=== PATIENT | male | born 1970 | race Caucasian/White ===

== ENCOUNTER 2017-01-08 20:33 | Emergency (ER) | payer OTHER ==
[2017-01-08] MEDS ORDERED: NS 1,000 ML IV ONE (20:45)
--- NOTE | 2017-01-08 20:52 | EDPHY ---
HPI/HX/ROS/PE/MDM Narrative: CHIEF COMPLAINT: Syncope HPI: The patient is a 46-year-old male with a history of hypertension. He drove here with his from [place] today. He was at a local bar and had several drinks as well as a fairly large amount of edible marijuana. Approximately 45 minutes after ingestion, he began to feel very strange and had a witnessed syncopal episode. This was accompanied by some diaphoresis but no chest pain. The patient currently feels "a little strange" but denies pain, numbness or tingling. He has no history of similar episodes in the past. REVIEW OF SYSTEMS: Aside from elements discussed in the HPI, a comprehensive 10-point review of systems was reviewed and is negative. PMH: Hypertension. SOCIAL HISTORY: , lives in [place]. Some alcohol use. PHYSICAL EXAM: General:Patient is alert, in no acute distress. ENT:Eyes are normal to inspection. ENT inspection normal. Neck: Normal inspection. Full range of motion. Respiratory:No respiratory distress. Breath sounds normal bilaterally. Cardiovascular: Regular rate and rhythm. Strong peripheral pulses. Normal cap refill. Abdomen:The abdomen is nontender to palpation. There are no peritoneal signs. There are normal bowel sounds. Back: Normal to inspection. No tenderness to palpation. Skin: Normal color. No rash. Warm and dry. Extremities: Normal appearance. Full range of motion. Neuro: Oriented x3. Normal motor function. Normal sensory function. ED Course: EKG was ordered and interpreted by myself. Please see [employer] system for official reading. Patient was treated with IV normal saline. On re-evaluation at 10:40 p.m., the patient states he feels much, much better and would like to be discharged home. His blood pressure still remained in the 90 systolic and I explained to him that I would like this to be higher, but the patient does not want to remain in the emergency department. I discussed strict return precautions with he and his . They are in agreement with plan. I think the cause of the patient's syncope is likely multifactorial including dehydration, adjustment out to, alcohol and marijuana use. I see no evidence of acute coronary syndrome, life-threatening arrhythmia or stroke. - Data Points Laboratory Results: Laboratory Results 01/08/17 21:00 01/08/17 21:00 01/08/17 01/08/17 21:00 21:00 WBC 10.25 10^3/uL H 10^3/uL (3.80-9.50) RBC 4.81 10^6/uL 10^6/uL (4.40-6.38) Hgb 14.9 g/dL g/dL (13.7-17.5) Hct 43.5 % % (40.0-51.0) MCV 90.4 fL fL (81.5-99.8) MCH 31.0 pg pg (27.9-34.1) MCHC 34.3 g/dL g/dL (32.4-36.7) RDW 13.0 % % (11.5-15.2) Plt Count 264 10^3/uL 10^3/uL (150-400) MPV 11.0 fL fL (8.7-11.7) Neut % (Auto) 30.9 % L % (39.3-74.2) Lymph % (Auto) 56.3 % H % (15.0-45.0) [place] % (Auto) 9.9 % % (4.5-13.0) Eos % (Auto) 2.1 % % (0.6-7.6) Baso % (Auto) 0.5 % % (0.3-1.7) Nucleat RBC Rel Count 0.0 % % (0.0-0.2) Absolute Neuts (auto) 3.17 10^3/uL 10^3/uL (1.70-6.50) Absolute Lymphs (auto) 5.77 10^3/uL H 10^3/uL (1.00-3.00) Absolute Monos (auto) 1.01 10^3/uL H 10^3/uL (0.30-0.80) Absolute Eos (auto) 0.22 10^3/uL 10^3/uL (0.03-0.40) Absolute Basos (auto) 0.05 10^3/uL 10^3/uL (0.02-0.10) Absolute Nucleated RBC 0.00 10^3/uL 10^3/uL (0-0.01) Immature Gran % 0.3 % % (0.0-1.1) Immature Gran # 0.03 10^3/uL 10^3/uL (0.00-0.10) Sodium 142 mEq/L mEq/L (134-144) Potassium 3.8 mEq/L mEq/L (3.5-5.2) Chloride 103 mEq/L mEq/L (97-110) Carbon Dioxide 21 mEq/l L mEq/l (22-31) Anion Gap 18 mEq/L H mEq/L (8-16) BUN 14 mg/dL mg/dL (7-23) Creatinine 1.2 mg/dL mg/dL (0.7-1.3) Estimated GFR > 60 Glucose 121 mg/dL H mg/dL (70-100) Calcium 9.7 mg/dL mg/dL (8.5-10.4) Troponin I < 0.012 ng/mL ng/mL (0.000-0.034) Medications Given: Discontinued Medications Sodium Chloride (Ns) 1,000 mls @ 0 mls/hr IV EDNOW ONE; Wide Open PRN Reason: Protocol Stop: 01/08/17 20:46 Last Admin: 01/08/17 20:49 Dose: 1,000 mls General Initial Vital Signs: Initial Vital Signs Temperature (C) 36.8 C 01/08/17 20:44 Heart Rate 95 01/08/17 20:44 Respiratory Rate 16 01/08/17 20:44 Blood Pressure 84/62 L 01/08/17 20:44 O2 Sat (%) 97 01/08/17 20:44 O2 Delivery Mode Room Air Allergies/Adverse Reactions: No Known Allergies Allergy (Unverified 01/08/17 20:43) Home Medications: Medication Instructions Recorded Citalopram 01/08/17 Lisinopril 01/08/17 SIMVASTATIN 01/08/17 Departure - Departure Disposition: Home, Routine, Self-Care Clinical Impression: Syncope Condition: Good Instructions: Syncope (ED) Additional Instructions: Follow-up with your primary doctor within 72 hours. Return to the Emergency Department for fever, chest pain, shortness of breath, passing out, increasing pain or other worsening of condition. Referrals: Patient,NotPresent [Unknown] - As per Instructions
--- NOTE | 2017-01-08 20:58 | CPEKG ---
Heart Rate: 94 RR Interval: 638 P-R Interval: 148 QRSD Interval: 100 QT Interval: 368 QTC Interval: 461 P [place]: 21 QRS [place]: 54 T Wave [place]: 52 EKG Severity - NORMAL ECG - EKG Impression: SINUS RHYTHM Electronically Signed By: Josh Scott 10-Jan-2017 08:09:19
[2017-01-08 21:14] LABS: % IMMATURE GRANULYOCYTES 0.3 % (0.0-1.1); ABSOLUTE IMMATURE GRANULOCYTES 0.03 10^3/uL (0.00-0.10); ADD DIFF? NO; ADD MORPH? NO; ADD SCAN? NO; ATYPICAL LYMPHOCYTE FLAG 10 (0-99); FRAGMENT RBC FLAG 0 (0-99); HEMATOCRIT 43.5 % (40.0-51.0); HEMOGLOBIN 14.9 g/dL (13.7-17.5); LEFT SHIFT FLG 0 (0-99); LIPEMIA HEMOLYSIS FLAG 90 (0-99); MEAN CELL HEMOGLOBIN CONCENTR. 34.3 g/dL (32.4-36.7); MEAN CELL VOLUME 90.4 fL (81.5-99.8); PLATELET CLUMPS FLAG 0 (0-99); PLATELET COUNT 264 10^3/uL (150-400); RED BLOOD CELL COUNT 4.81 10^6/uL (4.40-6.38)
[2017-01-08 21:27] LABS: ANION GAP 18 mEq/L (8-16); CALCIUM 9.7 mg/dL (8.5-10.4); CARBON DIOXIDE 21 mEq/l (22-31); CHLORIDE 103 mEq/L (97-110); CREATININE 1.2 mg/dL (0.7-1.3); GLOMERULAR FILTRATION RATE > 60; GLUCOSE 121 mg/dL (70-100); POTASSIUM 3.8 mEq/L (3.5-5.2); SODIUM 142 mEq/L (134-144)
[2017-01-08 21:38] LABS: TROPONIN I < 0.012 ng/mL (0.000-0.034)
[2017-01-08 23:00] VITALS: BP 100/52; PULSE 70; RESP 16; TEMP 98.1; O2SAT 97
== END 2017-01-08 23:00 | disposition home or self-care (01) ==
DX: R55 Syncope and collapse (principal); I10 Essential (primary) hypertension; E86.9 Volume depletion, unspecified